=== PATIENT | female | born 2000 | race Caucasian/White ===

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

== ENCOUNTER 2021-11-18 23:17 | Emergency (ER) | payer MEDICAID, OTHER ==
[~2021-11-18] VITALS: Ht 170 cm; Wt 109.0 kg
[~2021-11-18 23:17] MED LIST changes: +FERR160T5 PO; +IBUP-1773 PO; +PREN-142 PO
[2021-11-18 23:28] VITALS: BP_SYST 128; BP_SYST 131; BP_SYST 136; BP_DIAS 78; BP_DIAS 81; BP_DIAS 98
[2021-11-18 23:33] LABS: BILIRUBIN,URINE NEGATIVE (NEGATIVE); CLARITY,URINE CLEAR; COLOR,URINE YELLOW; GLUCOSE, URINE (UA) NEGATIVE (NEGATIVE); KETONES,URINE NEGATIVE (NEGATIVE); LEUKOCYTE ESTERASE ,URINE NEGATIVE (NEGATIVE); NITRITE,URINE NEGATIVE (NEGATIVE); PROTEIN,URINE NEGATIVE (NEGATIVE)
[2021-11-18 23:44] LABS: BACTERIA,URINE TRACE /HPF; SQUAMOUS EPITHELIAL CELL,UR 0-2 /HPF
--- NOTE | 2021-11-19 00:47 | ED General ---
General Chief Complaint: Dizziness/Syncope Stated Complaint: DIZZY Nursing Triage Note: c/o intermittant dizziness for "years" worse tonight since 1999. seen at [facility] for same given meclizine without improvement. (JOYCE HERNANDEZ MED STUDENT) Source of Information: Patient Exam Limitations: No Limitations (CHERY SAL) History of Present Illness Date Seen by Provider: Nov 19, 2021 Time Seen by Provider: 00:11 Initial Comments Sara is a 21 y/o F with PMHx of chronic episodic dizziness who presents for acutely worsening dizziness over the last day. Patient states she has had episodes of dizziness occurring approximately once a month for years which responds well to Meclazine though it has worsened over the last day with no response to medication. She does note some pain in the R ear. Dizziness is worsened by quick motions of the head, described as the room spinning and associated with visual disturbances described as vision darkening and generalized weakness. Patient reports some nausea but denies vomiting, recent falls, trauma, CP, SOB, hearing issues, syncope, focal weakness and fevers. (JOYCE HERNANDEZ MED STUDENT) Date Seen by Provider: Nov 19, 2021 Time Seen by Provider: 00:11 Initial Comments Patient ER by private vehicle chief complaint is had vertigo dizziness for years treated with meclizine successfully until the last months has been having a lot of pressure in her left ear and her vertigo has become more frequent instead of once or twice a month that is now once or twice a week and is less responsive to her meclizine. No other neurologic symptoms, fevers chills sore throat cough runny nose. (CHERY SAL) Allergies and Home Medications Allergies Coded Allergies: No Known Drug Allergies (Unverified , 04/12/13) Patient Home Medication List Home Medication List Reviewed: Yes (CHERY SAL) Ferrous Sulfate, Dried (Iron) 160 Mg Tablet.er, 160 MG PO, (Reported) Entered as Reported by: MARILYNN HO on 08/14/17105 Ibuprofen (Ibuprofen) 600 Mg Tablet, 600 MG PO Q6H Prescribed by: VIKTOR TIM on 08/16/17625 Vit No.124/Iron/FA ( Vitamin Tablet) 1 Each Tablet, 1 EACH PO, (Reported) Entered as Reported by: MARILYNN HO on 1/23/18 0106 Review of Systems Review of Systems Constitutional: dizziness (room spinning); No fever; weakness (episodic) EENTM: blurred vision; No double vision Respiratory: No short of breath, No wheezing Cardiovascular: No chest pain, No syncope Gastrointestinal: nausea; No vomiting Genitourinary: No discharge, No dysuria Musculoskeletal: No back pain, No joint pain Skin: No change in color, No lesions Psychiatric/Neurological: Denies Headache, Denies Weakness (JOYCE HERNANDEZ) Constitutional: No chills, No diaphoresis EENTM: No ear discharge, No hearing loss Respiratory: No cough, No short of breath Cardiovascular: No chest pain, No palpitations Gastrointestinal: No abdominal pain, No nausea, No vomiting Genitourinary: No discharge, No dysuria (CHERY SAL) All Other Systems Reviewed Negative Unless Noted: Yes (CHERY SAL) Past Jzfhwxf-Ezzqes-Zhvabg Hx Patient Social History Tobacco Use?: No Substance use?: No Alcohol Use?: No Pt feels they are or have been: No (JOYCE HERNANDEZ) Tobacco Use?: No Use of E-Cig and/or Vaping dev: No (CHERY SAL) Past Medical History Surgery/Hospitalization HX: hernia, dizziness Surgeries: Yes (HERNIA REPAIR ) Respiratory: No Cardiac: No Neurological: No Genitourinary: No Gastrointestinal: No Musculoskeletal: No Endocrine: No HEENT: No Cancer: No (JOYCE HERNANDEZ) Family Medical History Diabetes mellitus (Father) Physical Exam Vital Signs Vital Signs - First Documented 11/18/21 23:24 Temp 37.3 Pulse 97 Resp 18 B/P (MAP) 131/78 (95) Pulse Ox 98 O2 Delivery Room Air (CHERY SAL) Vital Signs Capillary Refill : Less Than 3 Seconds (JOYCE HERNANDEZ) Height, Weight, BMI Height: 5'7.00" Weight: 211lbs. 6.0oz. [id number]; 37.00 BMI Method: General Appearance: No Apparent Distress, WD/WN Eyes: Bilateral Eye Normal Inspection, Bilateral Eye PERRL, Bilateral Eye EOMI HEENT: PERRL/EOMI, Pharynx Normal Neck: Full Range of Motion, Normal Inspection, Non Tender Respiratory: Chest Non Tender, Lungs Clear, Normal Breath Sounds, No Accessory Muscle Use, No Respiratory Distress Cardiovascular: Regular Rate, Rhythm, No Edema, No Murmur, Normal Peripheral Pulses Gastrointestinal: Normal Bowel Sounds, No Organomegaly Back: Normal Inspection, No CVA Tenderness Extremity: Normal Capillary Refill, Normal Inspection, Non Tender Neurologic/Psychiatric: Alert, Oriented x3 Skin: Normal Color, Warm/Dry (JOYCE HERNANDEZ MED STUDENT) General Appearance: No Apparent Distress, WD/WN Eyes: Bilateral Eye Normal Inspection, Bilateral Eye PERRL, Bilateral Eye EOMI HEENT: PERRL/EOMI, Pharynx Normal, Moist Mucous Membranes, TM Abnormal (L) (Retracted, mucoid effusion, nonmobile but nontender nonerythematous and noninjected) Neck: Full Range of Motion, Normal Inspection Respiratory: Lungs Clear, Normal Breath Sounds, No Accessory Muscle Use, No Respiratory Distress Cardiovascular: Regular Rate, Rhythm, No Edema, Normal Peripheral Pulses Gastrointestinal: Normal Bowel Sounds, Non Tender, Soft Extremity: Normal Capillary Refill, Normal Inspection Neurologic/Psychiatric: Alert, Oriented x3, No Motor/Sensory Deficits Skin: Normal Color, Warm/Dry (CHERY SAL) Progress/Results/Core Measures Suspected Sepsis SIRS Temperature: Pulse: 96 Respiratory Rate: 18 Blood Pressure 128 /81 Mean: 97 (JOYCE HERNANDEZ MED STUDENT) Results/Orders Lab Results Laboratory Tests Test 11/18/21 23:20 Range/Units Urine Color YELLOW Urine Clarity CLEAR Urine pH 6.0 5-9 Urine Specific [place] <=1.005 1.016-1.022 Urine Protein NEGATIVE NEGATIVE Urine Glucose (UA) NEGATIVE NEGATIVE Urine Ketones NEGATIVE NEGATIVE Urine Nitrite NEGATIVE NEGATIVE Urine Bilirubin NEGATIVE NEGATIVE Urine Urobilinogen 0.2 < = 1.0 MG/DL Urine Leukocyte Esterase NEGATIVE NEGATIVE Urine RBC (Auto) NEGATIVE NEGATIVE Urine RBC NONE /HPF Urine WBC NONE /HPF Urine Squamous Epithelial Cells 0-2 /HPF Urine Crystals NONE /LPF Urine Bacteria TRACE /HPF Urine Casts NONE /LPF Urine Mucus NEGATIVE /LPF Urine Culture Indicated NO (CHERY SAL) My Orders Orders - CHERY SAL Ua Culture If Indicated (11/18/21 23:22) Urine Bedside (11/18/21 23:22) Continuous Ekg Monitoring (11/19/21 00:00) Ekg Tracing (11/19/21 00:00) (CHERY SAL) Vital Signs/I&O 11/18/21 11/18/21 11/19/21 23:24 23:28 02:27 Temp 37.3 36.9 Pulse 97 97 88 96 96 Resp 18 16 B/P (MAP) 131/78 (95) 131/78 (95) 115/81 136/98 (111) 128/81 (97) Pulse Ox 98 98 O2 Delivery Room Air Room Air (CHERY SAL) Vital Signs/I&O Capillary Refill : Less Than 3 Seconds (JOYCE HERNANDEZ MED STUDENT) Blood Pressure Mean: 97 Progress Note : Time: 05:09 Progress Note I attest that I saw this patient alongside the medical student and agree with his documented history, physical exam and review of systems except as otherwise noted. Topical steroids for her otitis media effusion/labyrinthitis, taught her some Cordell maneuvers and gave her some handouts. Follow-up with ENT if not seeing improvement in 1 to 2 weeks. (CHERY SAL) ECG Initial ECG Impression Date: Nov 19, 2021 Initial ECG Impression Time: 00:11 Initial ECG Rate: 85 Initial ECG Rhythm: Normal Sinus Initial ECG Intervals: Normal Initial ECG Impression: Normal Comment Normal sinus rhythm without clinically relevant ST elevation or depression (CHERY SAL) Departure Impression Primary Impression: BPPV (benign paroxysmal positional vertigo) Qualified Codes: H81.10 - Benign paroxysmal vertigo, unspecified ear Additional Impressions: Labyrinthitis, left ear OME (otitis media with effusion) Qualified Codes: H65.92 - Unspecified nonsuppurative otitis media, left ear Disposition: 01 HOME, SELF-CARE Condition: Stable Departure-Patient Inst. Decision time for Depature: 02:20 (CHERY SAL) Referrals: BOUBACAR BARRIGA MD NO,LOCAL PHYSICIAN (PCP) Primary Care Physician Patient Instructions: Serous Otitis Media, Vestibular Exercises, Labyrinthitis Add. Discharge Instructions: I think you are having allergic and/or small viral inflammation of the left ear causing a the left middle ear to give you this increased vertigo. Meclizine is still fine to use. research support specialist a bottle of fluticasone/Flonase and do 1 puff in each nostril twice a day for the next 1 to 2 weeks until symptoms improve. Zyrtec/cetirizine or Claritin/loratadine 10 mg daily to help with symptoms. If you are having persistent symptoms despite 1 to 2 weeks of therapy then follow-up with ear nose and throat surgeon, Dr. Barriga. All discharge instructions reviewed with patient and/or family. Voiced understanding. Work/School Note: Work Release Form Date Seen in the Emergency Department: Nov 19, 2021 Return to Work: November 20, 2021 Restrictions: No Restrictions Copy Copies To 1: BOUBACAR BARRIGA MD, MATTHEW MED STUDENT Nov 19, 2021 00:47 CHERY SAL Nov 19, 2021 02:22
[2021-11-19 02:27] VITALS: BP 115/81
== END 2021-11-19 02:27 | disposition home or self-care (01) ==
LOC: EDUNIT# 23:17 → ER 23:20
DX: H81.12 Benign paroxysmal vertigo, left ear (principal); H65.92 Unspecified nonsuppurative otitis media, left ear; H83.02 Labyrinthitis, left ear
CPT/HCPCS: 81000; 84703; 93005

== ENCOUNTER 2022-01-11 23:43 | Emergency (ER) | payer OTHER ==
[~2022-01-11] VITALS: Ht 170.8 cm; Wt 104.3 kg
[2022-01-12] MEDS ORDERED: ORPHENADRINE 60 MG/2 ML (NORFLEX) AMP (ED ONLY) IV ONE (01:30)
[2022-01-12] MEDS ORDERED: PROMETHAZINE INJ 25 MG/ML (PHENERGAN) AMP IVP ONE (01:30)
[2022-01-12] MEDS ORDERED: KETOROLAC 30 MG/ML VIAL IVP ONE (01:30)
[2022-01-12] MEDS ORDERED: LACTATED RINGERS 1,000 ML IV ONE (01:30)
[2022-01-12 01:47] LABS: BASOPHILS % (AUTO) 0 % (0-10); EOSINOPHILS # (AUTO) 0.1 10^3/uL (0.0-0.3); EOSINOPHILS % (AUTO) 1 % (0-10); HEMATOCRIT 40 % (35-52); HEMOGLOBIN 13.4 g/dL (11.5-16.0); LYMPHOCYTES # (AUTO) 2.5 10^3/uL (1.0-4.0); LYMPHOCYTES % (AUTO) 26 % (12-44); MEAN CORPUSCULAR HEMOGLOBIN 31 pg (25-34); MEAN CORPUSCULAR HGB CONC 34 g/dL (32-36); MEAN CORPUSCULAR VOLUME 92 fL (80-99); MEAN PLATELET VOLUME 10.2 fL (9.0-12.2); MONOCYTES # (AUTO) 0.8 10^3/uL (0.0-1.0); MONOCYTES % (AUTO) 8 % (0-12); NEUTROPHILS % (AUTO) 64 % (42-75); PLATELET COUNT 231 10^3/uL (130-400); WHITE BLOOD COUNT 9.4 10^3/uL (4.3-11.0)
[2022-01-12 02:05] LABS: ERYTHROCYTE SEDIMENTATION RATE 18 MM/HR (0-20)
[2022-01-12 02:21] LABS: CALCIUM 9.4 MG/DL (8.5-10.1); CREATININE SERUM 0.84 MG/DL (0.60-1.30); MAGNESIUM 1.8 MG/DL (1.6-2.4); POTASSIUM 3.6 MMOL/L (3.6-5.0)
--- NOTE | 2022-01-12 04:04 | ED Neurological Problem ---
General Chief Complaint: Head/Cervical Problems Stated Complaint: MIGRAINE,DIZZY,BLURRED VISION Nursing Triage Note: C/o Headache and dizziness x approx 2 weeks. Reports that she has been seen at [facility] and given "a shot that starts with T." She reports that she was supposed to get a CT but the order was never written. Currently has not taken her meclizine per her providers direction. Source: patient Exam Limitations: no limitations History of Present Illness Date Seen by Provider: Jan 12, 2022 Time Seen by Provider: 01:05 Initial Comments This 21-year-old young lady presents to the emergency room with complaints of vertigo and headache for approximately 2 weeks. Headache has been persistent for about a week. Tylenol and ibuprofen have not been effective in mitigating her pain. She went to the [facility] clinic and received a Toradol injection which also did not resolve her pain. In fact, she thinks she worsened after the injection. There was discussion about obtaining a CT scan while at the clinic, but that has not yet materialized. Patient is accustomed to having episodes of vertigo since being a teenager. However, she is not accustomed to having headaches this severe or this persistent. She has never experienced a headache like this before. She also has nausea associated with the dizziness. In the past she has been able to manage her symptoms of vertigo with meclizine and Cordell maneuvers. However, these measures have not been successful for symptom control over the past 2 weeks. She describes a vision change of "white spots" when she has exacerbation of pain while lying flat. This improves if she is in an upright position. Beyond the vision changes, she describes no focal neurologic deficits. She has not had any imaging of the head since being a teenager. She has experienced some muscle tension in her neck with tenderness just inferior to the occiput. She has played softball but denies any trauma. She denies as she is not sexually active and has a Mirena IUD. Allergies and Home Medications Allergies Coded Allergies: No Known Drug Allergies (Unverified , 04/12/13) Patient Home Medication List Home Medication List Reviewed: Yes Ferrous Sulfate, Dried (Iron) 160 Mg Tablet.er, 160 MG PO, (Reported) Entered as Reported by: MARILYNN HO on 08/14/17 0106 Ibuprofen (Ibuprofen) 600 Mg Tablet, 600 MG PO Q6H Prescribed by: VIKTOR TIM on 08/16/17 0626 Vit No.124/Iron/FA ( Vitamin Tablet) 1 Each Tablet, 1 EACH PO, (Reported) Entered as Reported by: MARILYNN HO on 08/14/17 0106 Review of Systems Review of Systems Constitutional: no symptoms reported Eyes: See HPI Ears, Nose, Mouth, Throat: no symptoms reported Respiratory: no symptoms reported Cardiovascular: no symptoms reported Gastrointestinal: see HPI Genitourinary: no symptoms reported : No Musculoskeletal: see HPI Skin: no symptoms reported Psychiatric/Neurological: See HPI Endocrine: No Symptoms Reported Hematologic/Lymphatic: No Symptoms Reported Past Kscujrh-Rrydas-Fgqpqo Hx Patient Social History Tobacco Use?: No Substance use?: No Alcohol Use?: No Pt feels they are or have been: No Immunizations Up To Date First/Initial COVID19 Vaccinat: 2020 Past Medical History Surgery/Hospitalization HX: umbillical hernia as a child Surgeries: Yes (HERNIA REPAIR ) Respiratory: No Cardiac: No Neurological: Yes Headaches /Migraines, Vertigo : No Genitourinary: No Gastrointestinal: No Musculoskeletal: No Endocrine: No HEENT: No Cancer: No Psychosocial: No Integumentary: No Family Medical History Diabetes mellitus (Father) Physical Exam Vital Signs Vital Signs - First Documented 01/11/22 23:54 Temp 36.6 Pulse 102 Resp 16 B/P (MAP) 110/76 (87) Pulse Ox 98 O2 Delivery Room Air Capillary Refill : Less Than 3 Seconds Height, Weight, BMI Height: 5'7.00" Weight: 211lbs. 6.0oz. 95.143271um; 35.00 BMI Method: General Appearance: WD/WN, no apparent distress HEENT: PERRL/EOMI, normal ENT inspection, TMs normal, pharynx normal Neck: normal inspection Respiratory: lungs clear, normal breath sounds, no respiratory distress Cardiovascular: regular rate, rhythm, no edema, no murmur Gastrointestinal: non tender, soft; No distended Extremities: non-tender, normal inspection, no pedal edema Neurologic/Psychiatric: chief operator synthesis II-XII nml as tested, no motor/sensory deficits, alert, normal mood/affect, oriented x 3 Crainal Nerves: normal hearing, normal speech, PERRL Coordination/Gait: normal finger to nose (Normal [id number]) Motor/Sensory: no motor deficit, no sensory deficit Skin: normal color, warm/dry Progress/Results/Core Measures Results/Orders Lab Results Laboratory Tests Test 01/12/22 01:40 01/12/22 05:20 Range/Units White Blood Count 9.4 4.3-11.0 10^3/uL Red Blood Count 4.35 3.80-5.11 10^6/uL Hemoglobin 13.4 11.5-16.0 g/dL Hematocrit 40 35-52 % Mean Corpuscular Volume 92 80-99 fL Mean Corpuscular Hemoglobin 31 25-34 pg Mean Corpuscular Hemoglobin Concent 34 32-36 g/dL Red Cell Distribution Width 11.8 10.0-14.5 % Platelet Count 231 130-400 10^3/uL Mean Platelet Volume 10.2 9.0-12.2 fL Immature Granulocyte % (Auto) 0 % Neutrophils (%) (Auto) 64 42-75 % Lymphocytes (%) (Auto) 26 12-44 % Monocytes (%) (Auto) 8 0-12 % Eosinophils (%) (Auto) 1 0-10 % Basophils (%) (Auto) 0 0-10 % Neutrophils # (Auto) 6.0 1.8-7.8 10^3/uL Lymphocytes # (Auto) 2.5 1.0-4.0 10^3/uL Monocytes # (Auto) 0.8 0.0-1.0 10^3/uL Eosinophils # (Auto) 0.1 0.0-0.3 10^3/uL Basophils # (Auto) 0.0 0.0-0.1 10^3/uL Immature Granulocyte # (Auto) 0.0 0.0-0.1 10^3/uL Erythrocyte Sedimentation Rate 18 0-20 MM/HR Sodium Level 142 135-145 MMOL/L Potassium Level 3.6 3.6-5.0 MMOL/L Chloride Level 107 98-107 MMOL/L Carbon Dioxide Level 23 21-32 MMOL/L Anion Gap 12 5-14 MMOL/L Blood Urea Nitrogen 8 7-18 MG/DL Creatinine 0.84 0.60-1.30 MG/DL Estimat Glomerular Filtration Rate 100 BUN/Creatinine Ratio 10 Glucose Level 78 70-105 MG/DL Calcium Level 9.4 8.5-10.1 MG/DL Magnesium Level 1.8 1.6-2.4 MG/DL Influenza Type A (RT-PCR) Not Detected Not Detecte Influenza Type B (RT-PCR) Not Detected Not Detecte SARS-CoV-2 RNA (RT-PCR) Not Detected Not Detecte My Orders Orders - PEBBLES WRIGHT MD Cbc With Automated Diff (01/12/22 01:22) Magnesium (01/12/22 01:22) Erythrocyte Sedimentation Rate (01/12/22 01:22) Ed Iv/Invasive Line Start (01/12/22 01:22) Lactated Ringers (Lr 1000 Ml Iv Solution (01/12/22 01:30) Basic Metabolic Panel (01/12/22 01:22) Ketorolac Injection (Toradol Injection) (01/12/22 01:30) Orphenadrine Inj (Ed Only) (Norflex Inje (01/12/22 01:30) Promethazine Injection (Phenergan Injec (01/12/22 01:30) Ct Head Wo (01/12/22 02:12) Covid 19 Inhouse Test (01/12/22 05:16) Influenza A And B By Pcr (01/12/22 05:16) Meclizine Tablet (Antivert Tablet) (01/12/22 06:00) Ondansetron Injection (Zofran Injectio (01/12/22 06:00) Medications Given in ED Current Medications Medications Dose Ordered Sig/Jolie Route Start Time Stop Time Status Last Admin Dose Admin Ketorolac Tromethamine 15 mg ONCE ONCE IVP 01/12/22 01:30 01/12/22 01:31 DC 01/12/22 01:36 15 MG Lactated Ringer's 1,000 ml @ 0 mls/hr Q0M ONCE IV 01/12/22 01:30 01/12/22 01:31 DC 01/12/22 01:35 1,000 MLS/HR Meclizine HCl 25 mg ONCE ONCE PO 01/12/22 06:00 01/12/22 06:01 DC 01/12/22 06:10 25 MG Ondansetron HCl 8 mg ONCE ONCE IVP 01/12/22 06:00 01/12/22 06:01 DC 01/12/22 06:10 8 MG Orphenadrine Citrate 60 mg ONCE ONCE IV 01/12/22 01:30 01/12/22 01:31 DC 01/12/22 01:36 60 MG Promethazine HCl 25 mg ONCE ONCE IVP 01/12/22 01:30 01/12/22 01:31 DC 01/12/22 01:36 25 MG Vital Signs/I&O 01/11/22 01/12/22 23:54 06:40 Temp 36.6 Pulse 102 80 Resp 16 14 B/P (MAP) 110/76 (87) 101/72 Pulse Ox 98 100 O2 Delivery Room Air Blood Pressure Mean: 87 Progress Progress Note #1: Time: 03:59 Progress Note Patient was hydrated with a liter of LR. Symptoms were treated with Phenergan, Toradol, and Norflex. She is feeling much improved. CT of the head was obtained and revealed chronic right maxillary sinusitis and a large pineal cyst with significant mass-effect. These CT findings were discussed with Dr. Baker, neurosurgeon at [facility] in [place]. She recommends prompt transfer to a tertiary care center. She does not recommend waiting for outpatient follow-up. These recommendations were communicated to the patient, and patient request manjula hart to the [place] area where she has family. Call has been placed to [facility] and I am awaiting response. Progress Note #2: Time: 05:10 Progress Note [facility] declined transfer due to lack of bed availability. I next called [facility] and spoke with Dr. Saunders. He accepted the case but [facility] declined also due to lack of bed availability. I next contacted the [facility] hospital system and spoke with Dr. Snider at [facility] who likewise would accept transfer. He felt inpatient transfer and admission was less urgent based on the information provided. I discussed options with the patient. She is open to transfer to [facility]. While she is considering her options, and also checking with [facility]. Progress Note #3: Time: 05:47 Progress Note has no bed availability. Patient has discussed the situation with her father. She would like to transfer to [facility] by private vehicle. No EMS transport would be available for at least 3 hours, and patient is stable to transfer by private vehicle. Patient's pain is relatively well controlled at this time, but she would like further treatment for nausea and dizziness. Meclizine and Zofran have been ordered. Progress Note #4: Time: 06:15 Progress Note Transfer was ultimately excepted by Dr. Santos (hospitalist) at [facility] with consultation to Dr. Snider (neurosurgery). Patient is stable and will be allowed to transfer by private vehicle with her father with the understanding she should go directly to the hospital from here. Diagnostic Imaging Diagonstic Imaging: CT Plain Films/CT/US/NM/MRI: head Comments CT head viewed by me and statrad report reviewed. Report reads as: 1. No evidence of acute intracranial pathology. 2. Large pineal cyst with significant mass-effect on the tectal plate with narrowing of the cerebral aqueduct without evidence of hydrocephalus recommend MRI with CSF flow analysis for further evaluation. Departure Impression Primary Impression: Pineal gland cyst Additional Impressions: Vertigo Acute headache Qualified Codes: R51.9 - Headache, unspecified Right maxillary sinusitis, chronic Disposition: 02 XFER SHT-TRM HOSP Condition: Stable Transfer Transfer Reason: Exceeds level of care Time Spoke to Accepting Phy: 06:10 Transfer Progress Notes Transfer accepted by Dr. Santos, hospitalist at [facility]. Transfer Time: 06:47 Transfer Facility: [facility] Method of Transfer: Private Vehicle Departure-Patient Inst. Referrals: NO,LOCAL PHYSICIAN (PCP/Family) Primary Care Physician Copy Copies To 1: [facility]/PEBBLES KEY MD Jan 12, 2022 04:04
[2022-01-12] MEDS ORDERED: ONDANSETRON 4 MG/2 ML (SDV) Z0FRAN IVP ONE (06:00)
[2022-01-12] MEDS ORDERED: MECLIZINE 25 MG (ANTIVERT) TAB PO ONE (06:00)
[2022-01-12 06:40] VITALS: BP 101/72
--- NOTE | 2022-01-12 08:44 | Diagnostic Imaging Report ---
PROCEDURE: CT head without contrast. TECHNIQUE: Multiple contiguous axial images were obtained through the brain without the use of intravenous contrast. Auto Exposure Controls were utilized during the CT exam to meet ALARA standards for radiation dose reduction. INDICATION: Severe headache COMPARISON: 04/12/2013 FINDINGS: No intracranial hemorrhage. 4.2 x 2.2 cm CSF density structure is identified involving the left middle cranial fossa. This has not significantly changed since 2012. Small subcentimeter hypodensity is noted involving the pineal gland. This is seen abutting the tectal plate. There is no evidence of hydrocephalus. No additional intracranial mass, mass effect, midline shift, herniation, hydrocephalus, or additional suspicious extra-axial fluid collection. No CT evidence of an acute ischemic infarction. The orbits are unremarkable. Near-complete opacification the right maxillary sinus with coni bullosa of the right middle turbinate. The calvarium is intact. IMPRESSION: Stable benign arachnoid cyst within the left middle cranial fossa, not significantly changed since 2012. Small pineal gland cyst without associated obstructive hydrocephalus. This can be further evaluated with MRI of the brain. Agree with preliminary interpretation that there is an arachnoid cyst and pineal gland cyst and MRI could help to further evaluate. Dictated by: Dictated on workstation # [id number]
== END 2022-01-12 06:47 | disposition short-term general hospital (02) ==
LOC: EDUNIT# 23:43 → ER 23:47
DX: J32.0 Chronic maxillary sinusitis (principal); E34.8 Other specified endocrine disorders; R42 Dizziness and giddiness; T45.0X6A Underdosing of antiallergic and antiemetic drugs, initial encounter; Z91.14 Patient's other noncompliance with medication regimen; Z20.822 Contact with and (suspected) exposure to COVID-19
CPT/HCPCS: 36415; 70450; 80048; 83735; 85025; 85652; 87636

== ENCOUNTER 2022-02-03 21:41 | Emergency (ER) | payer OTHER ==
[~2022-02-03] VITALS: Ht 172.7 cm; Wt 100.0 kg
[2022-02-04 00:48] LABS: BILIRUBIN,URINE NEGATIVE (NEGATIVE); CLARITY,URINE CLEAR; COLOR,URINE YELLOW; GLUCOSE, URINE (UA) NEGATIVE (NEGATIVE); KETONES,URINE NEGATIVE (NEGATIVE); LEUKOCYTE ESTERASE ,URINE TRACE (NEGATIVE); NITRITE,URINE NEGATIVE (NEGATIVE); PH,URINE 5.5 (5-9); PROTEIN,URINE NEGATIVE (NEGATIVE)
[2022-02-04 00:53] LABS: BASOPHILS % (AUTO) 0 % (0-10); EOSINOPHILS # (AUTO) 0.1 10^3/uL (0.0-0.3); EOSINOPHILS % (AUTO) 1 % (0-10); HEMATOCRIT 39 % (35-52); HEMOGLOBIN 13.3 g/dL (11.5-16.0); LYMPHOCYTES % (AUTO) 28 % (12-44); MEAN CORPUSCULAR HEMOGLOBIN 31 pg (25-34); MEAN CORPUSCULAR HGB CONC 34 g/dL (32-36); MEAN CORPUSCULAR VOLUME 91 fL (80-99); MEAN PLATELET VOLUME 10.6 fL (9.0-12.2); MONOCYTES # (AUTO) 0.8 10^3/uL (0.0-1.0); MONOCYTES % (AUTO) 8 % (0-12); NEUTROPHILS # (AUTO) 6.6 10^3/uL (1.8-7.8); NEUTROPHILS % (AUTO) 63 % (42-75); PLATELET COUNT 243 10^3/uL (130-400); WHITE BLOOD COUNT 10.5 10^3/uL (4.3-11.0)
[2022-02-04 00:57] LABS: ALBUMIN 4.2 GM/DL (3.2-4.5); POTASSIUM 3.3 MMOL/L (3.6-5.0)
[2022-02-04 00:59] LABS: CALCIUM 9.3 MG/DL (8.5-10.1)
[2022-02-04 01:00] LABS: TOTAL PROTEIN 6.6 GM/DL (6.4-8.2)
[2022-02-04 01:01] LABS: BILIRUBIN,TOTAL 0.4 MG/DL (0.1-1.0)
[2022-02-04 01:03] LABS: CREATININE SERUM 0.81 MG/DL (0.60-1.30)
[2022-02-04 01:06] LABS: MAGNESIUM 1.7 MG/DL (1.6-2.4)
[2022-02-04 01:08] LABS: BACTERIA,URINE TRACE /HPF; WBC,URINE 0-2 /HPF
[2022-02-04 01:16] LABS: AMPHETAMINE SCREEN, URINE NEGATIVE (NEGATIVE); BARBITURATE SCREEN URINE NEGATIVE (NEGATIVE); BENZODIAZEPINES SCREEN URINE NEGATIVE (NEGATIVE); CANNABINOID SCREEN, URINE NEGATIVE (NEGATIVE); COCAINE SCREEN URINE NEGATIVE (NEGATIVE); METHADONE STAT NEGATIVE (NEGATIVE); OPIATE SCREEN URINE NEGATIVE (NEGATIVE); OXYCODONE STAT NEGATIVE (NEGATIVE); PROPOXYPHENE STAT NEGATIVE (NEGATIVE); TRICYCLIC ANTIDEPRESSANTS SCRE NEGATIVE (NEGATIVE)
--- NOTE | 2022-02-04 02:25 | ED General ---
General Chief Complaint: Dizziness/Syncope Stated Complaint: KUHN,NAUSEA, CHEST PAIN, TIGHTNESS Nursing Triage Note: PT ARRIVAL TO ER [facility] WITH COMPLAINT OF HEADACHE, NAUSEA, BLURRED VISION, SHAKINESS THATS WORSENED TODAY. 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 PT STATES THAT SHE HAS HAD TWO LUMBAR PUNCTURES IN THE LAST WEEK AT [facility] [place] . PT STATES THAT HER PRESSURE IN LUMBAR YESTERDAY WAS 126. Source of Information: Patient History of Present Illness Date Seen by Provider: Feb 04, 2022 Time Seen by Provider: 00:45 Initial Comments PT ARRIVES VIA POV FROM HOME PT WITH MULTIPLE COMPLAINTS C/O HEADACHE--BEGAN 1 1/2 HOURS AGO WHILE DRIVING PAIN STARTS IN OCCIPITAL AREA, AND THEN MOVES TO THE FRONT C/O NAUSEA, NO VOMITING--ONGOING FOR SEVERAL DAYS C/O CHEST TIGHTNESS THAT COMES AND GOES--ON GOING FOR SEVERAL DAYS C/O SHORTNESS OF BREATH--ONGOING FOR SEVERAL DAYS--STATES "I CAN TELL THAT MY BREATHING IS LABORED" C/O COUGH C/O SORE THROAT NO FEVER STATES SHE HAS BEEN "OUT AND ABOUT" ALL DAY, DRIVING ALL OVER, ETC. HAS NOT TAKEN ANYTHING FOR HER HEADACHE OR OTHER SYMPTOMS AT ANY TIME PT WAS SEEN HERE 01/11/22 FOR ONGOING HEADACHE AND DIZZINESS WAS DX WITH [facility] AND TRANSFERRED TO [facility] IN STATES SHE HAD A LUMBAR PUNCTURE AT THAT TIME AND HAD A SPINAL HEADACHE AND RECEIVED A BLOOD PATCH AND WAS GIVEN RX FOR GABAPENTIN FOR A FEW DAYS, HAS NOT HAD IT IN OVER A WEEK STATES SHE WAS ALSO DX WITH "SWOLLEN OPTIC NERVE" BUT NO TREATMENT WAS DONE FOR THAT PT WAS ALSO DX WITH SINUS INFECTION AND TOOK AMOXICILLIN--FINISHED IT OVER A WEEK AGO AT SOME POINT, PT HAS BEEN DX WITH "OCULAR MIGRAINES" BUT NOT PRESCRIBED ANY M EDICATION FOR IT PT WAS AT [facility] AGAIN YESTERDAY FOR THESE PROBLEMS "DIZZINESS AND ELEVATED PRESSURE" AND HAD A LUMBAR PUNCTURE DONE, PT STATES "BUT THEY DIDN'T TAKE ANY FLUID OUT" STATES THIS HEADACHE DOES NOT FEEL ANYTHING AT ALL LIKE THE SPINAL HEADACHE THAT SHE HAD WITH THE FIRST LUMBAR PUNCTURE STATES THIS FEELS LIKE "MY OCULAR MIGRAINES", AND IS WORSE WITH CERTAIN POSITIONS WHEN SHE IS LAYING DOWN. WAS SEEN AT [facility] BY PANCHO HERNANDEZ EARLIER IN THE WEEK AND PT STATES SHE WAS TOLD THAT SHE "MIGHT HAVE A BLOOD CLOT IN MY LUNGS" "BECAUSE I'VE HAS HAD TO LAY DOWN SO MUCH FOR THE LUMBAR PUNCTURES"--SO SHE CAME IN TONIGHT TO HAVE THIS DONE. PT IS NOT ON ANY MEDICATIONS OF ANY KIND AT THIS TIME. PT HAS HAD COVID-19 VACCINE X 2--LAST ONE A YEAR AGO. NO BOOSTER LMP; NONE--HAS IUD IN PLACE. PCP; [facility], [facility] Allergies and Home Medications Allergies Coded Allergies: No Known Drug Allergies (Unverified , 04/12/13) Patient Home Medication List Home Medication List Reviewed: Yes Ferrous Sulfate, Dried (Iron) 160 Mg Tablet.er, 160 MG PO, (Reported) Entered as Reported by: MARILYNN HO on 08/14/17 010 Ibuprofen (Ibuprofen) 600 Mg Tablet, 600 MG PO Q6H Prescribed by: VIKTOR TIM on 08/16/17 0626 Ketorolac Tromethamine (Ketorolac Tromethamine) 10 Mg Tablet, 10 MG PO Q6H Prescribed by: CONSTANCE SCHNEIDER on 02/04/22 0351 Ondansetron (Ondansetron Odt) 4 Mg Tab.rapdis, 4 MG PO Q4H Prescribed by: CONSTANCE SCHNEIDER on 02/04/22 0350 Vit No.124/Iron/FA ( Vitamin Tablet) 1 Each Tablet, 1 EACH PO, (Reported) Entered as Reported by: MARILYNN HO on 08/14/17 010 Review of Systems Review of Systems Constitutional: no symptoms reported EENTM: see HPI Respiratory: see HPI, cough, short of breath Cardiovascular: see HPI, chest pain Gastrointestinal: see HPI; No abdominal pain, No diarrhea; nausea; No vomiting Genitourinary: no symptoms reported : No Musculoskeletal: no symptoms reported Skin: no symptoms reported Psychiatric/Neurological: See HPI, Headache Hematologic/Lymphatic: No Symptoms Reported Immunological/Allergic: no symptoms reported Past Fgudmew-Nmwaai-Qejlge Hx Patient Social History Tobacco Use?: No Use of E-Cig and/or Vaping dev: No Substance use?: No Alcohol Use?: No Pt feels they are or have been: No Immunizations Up To Date First/Initial COVID19 Vaccinat: 2019 Second COVID19 Vaccination Rojelio: 2019 Third COVID19 Vaccination Date: 2019 Past Medical History Surgery/Hospitalization HX: umbillical hernia as a child Surgeries: Yes (HERNIA REPAIR ) Abdominal Respiratory: No Cardiac: No Neurological: Yes Headaches /Migraines, Vertigo : No [employer] History: IUD Genitourinary: No Gastrointestinal: No Musculoskeletal: No Endocrine: No HEENT: No Cancer: No Psychosocial: No Integumentary: No Blood Disorders: No Family Medical History Diabetes mellitus (Father) Physical Exam Vital Signs Vital Signs - First Documented 02/03/22 23:17 Temp 36.8 Pulse 97 Resp 20 B/P (MAP) 145/83 (103) Pulse Ox 99 O2 Delivery Room Air Capillary Refill : Less Than 3 Seconds Height, Weight, BMI Height: 5'7.00" Weight: 211lbs. 6.0oz. [id number]; 33.00 BMI Method: General Appearance: No Apparent Distress, WD/WN, Other (DOES NOT APPEAR ILL OR TO BE IN ANY DISCOMFORT OR DISTRESS. ) HEENT: PERRL/EOMI, TMs Normal, Normal ENT Inspection, Pharynx Normal, Moist Mucous Membranes Neck: Full Range of Motion, Normal Inspection, Non Tender, Supple Respiratory: Normal Breath Sounds, No Accessory Muscle Use, No Respiratory Di stress Cardiovascular: Regular Rate, Rhythm, No Edema, No JVD, No Murmur, Normal Peripheral Pulses Gastrointestinal: Normal Bowel Sounds, No Organomegaly, Non Tender, Soft Back: Normal Inspection, No CVA Tenderness, No Vertebral Tenderness Extremity: Normal Capillary Refill, Normal Inspection, Normal Range of Motion, Non Tender, No Calf Tenderness, No Pedal Edema Neurologic/Psychiatric: Alert, Oriented x3, No Motor/Sensory Deficits, Normal Mood/Affect, sulfur burner II-XII Norm as Tested; No Abnormal Cerebellar Tests Skin: Normal Color, Warm/Dry Progress/Results/Core Measures Suspected Sepsis SIRS Temperature: Pulse: 97 Respiratory Rate: 20 Laboratory Tests 02/04/22 00:39: White Blood Count 10.5 Blood Pressure 145 /83 Mean: 103 Laboratory Tests 02/04/22 00:39: Creatinine 0.81, Platelet Count 243, Total Bilirubin 0.4 Results/Orders Lab Results Laboratory Tests Test 02/04/22 00:28 02/04/22 00:39 Range/Units Influenza Type A (RT-PCR) Not Detected Not Detecte Influenza Type B (RT-PCR) Not Detected Not Detecte SARS-CoV-2 RNA (RT-PCR) Not Detected Not Detecte White Blood Count 10.5 4.3-11.0 10^3/uL Red Blood Count 4.27 3.80-5.11 10^6/uL Hemoglobin 13.3 11.5-16.0 g/dL Hematocrit 39 35-52 % Mean Corpuscular Volume 91 80-99 fL Mean Corpuscular Hemoglobin 31 25-34 pg Mean Corpuscular Hemoglobin Concent 34 32-36 g/dL Red Cell Distribution Width 12.0 10.0-14.5 % Platelet Count 243 130-400 10^3/uL Mean Platelet Volume 10.6 9.0-12.2 fL Immature Granulocyte % (Auto) 0 % Neutrophils (%) (Auto) 63 42-75 % Lymphocytes (%) (Auto) 28 12-44 % Monocytes (%) (Auto) 8 0-12 % Eosinophils (%) (Auto) 1 0-10 % Basophils (%) (Auto) 0 0-10 % Neutrophils # (Auto) 6.6 1.8-7.8 10^3/uL Lymphocytes # (Auto) 3.0 1.0-4.0 10^3/uL Monocytes # (Auto) 0.8 0.0-1.0 10^3/uL Eosinophils # (Auto) 0.1 0.0-0.3 10^3/uL Basophils # (Auto) 0.0 0.0-0.1 10^3/uL Immature Granulocyte # (Auto) 0.0 0.0-0.1 10^3/uL Urine Color YELLOW Urine Clarity CLEAR Urine pH 5.5 5-9 Urine Specific [place] 1.015 L 1.016-1.022 Urine Protein NEGATIVE NEGATIVE Urine Glucose (UA) NEGATIVE NEGATIVE Urine Ketones NEGATIVE NEGATIVE Urine Nitrite NEGATIVE NEGATIVE Urine Bilirubin NEGATIVE NEGATIVE Urine Urobilinogen 0.2 < = 1.0 MG/DL Urine Leukocyte Esterase TRACE H NEGATIVE Urine RBC (Auto) NEGATIVE NEGATIVE Urine RBC NONE /HPF Urine WBC 0-2 /HPF Urine Crystals NONE /LPF Urine Bacteria TRACE /HPF Urine Casts NONE /LPF Urine Mucus NEGATIVE /LPF Urine Culture Indicated NO Sodium Level 140 135-145 MMOL/L Potassium Level 3.3 L 3.6-5.0 MMOL/L Chloride Level 107 98-107 MMOL/L Carbon Dioxide Level 20 L 21-32 MMOL/L Anion Gap 13 5-14 MMOL/L Blood Urea Nitrogen 7 7-18 MG/DL Creatinine 0.81 0.60-1.30 MG/DL Estimat Glomerular Filtration Rate 105 BUN/Creatinine Ratio 9 Glucose Level 84 70-105 MG/DL Calcium Level 9.3 8.5-10.1 MG/DL Corrected Calcium 9.1 8.5-10.1 MG/DL Magnesium Level 1.7 1.6-2.4 MG/DL Total Bilirubin 0.4 0.1-1.0 MG/DL Aspartate Amino Transf (AST/SGOT) 15 5-34 U/L Alanine Aminotransferase (ALT/SGPT) 11 0-55 U/L Alkaline Phosphatase 50 40-136 U/L Total Protein 6.6 6.4-8.2 GM/DL Albumin 4.2 3.2-4.5 GM/DL Serum Test, Qualitative NEGATIVE NEGATIVE Urine Opiates Screen NEGATIVE NEGATIVE Urine Oxycodone Screen NEGATIVE NEGATIVE Urine Methadone Screen NEGATIVE NEGATIVE Urine Propoxyphene Screen NEGATIVE NEGATIVE Urine Barbiturates Screen NEGATIVE NEGATIVE Ur Tricyclic Antidepressants Screen NEGATIVE NEGATIVE Urine Phencyclidine Screen NEGATIVE NEGATIVE Urine Amphetamines Screen NEGATIVE NEGATIVE Urine Methamphetamines Screen NEGATIVE NEGATIVE Urine Benzodiazepines Screen NEGATIVE NEGATIVE Urine Cocaine Screen NEGATIVE NEGATIVE Urine Cannabinoids Screen NEGATIVE NEGATIVE My Orders Orders - CONSTANCE SCHNEIDER DO Ed Iv/Invasive Line Start (02/04/22 00:16) Monitor-Rhythm Ecg Trace Only (02/04/22 00:16) Cbc With Automated Diff (02/04/22 00:16) Comprehensive Metabolic Panel (02/04/22 00:16) Drug Screen Stat (Urine) (02/04/22 00:16) Hcg,Qualitative Serum (02/04/22 00:16) Magnesium (02/04/22 00:16) Ua Culture If Indicated (02/04/22 00:16) Chest 1 View, Ap/Pa Only (02/04/22 00:16) Covid 19 Inhouse Test (02/04/22 00:16) Influenza A And B By Pcr (02/04/22 00:16) Isolation Central Supply Req (02/04/22 00:16) Ct Angio Chest W (02/04/22 01:32) Iohexol Injection (Omnipaque 350 Mg/Ml 1 (02/04/22 02:30) Sodium Chloride Flush (Catheter Flush Sy (02/04/22 02:30) Ns (Ivpb) (Sodium Chloride 0.9% Ivpb Bag (02/04/22 02:30) Rx-Ondansetron Po (Rx-Zofran Po) (02/04/22 03:51) Medications Given in ED Current Medications Medications Dose Ordered Sig/Jolie Route Start Time Stop Time Status Last Admin Dose Admin Iohexol 100 ml ONCE ONCE IV 02/04/22 02:30 02/04/22 02:31 DC 02/04/22 02:21 90 ML Sodium Chloride 10 ml NEEDED PRN IV 02/04/22 02:30 02/04/22 04:03 DC 02/04/22 02:21 10 ML Sodium Chloride 100 ml ONCE ONCE IV 02/04/22 02:30 02/04/22 02:31 DC 02/04/22 02:21 80 ML Vital Signs/I&O 02/03/22 02/04/22 23:17 03:56 Temp 36.8 Pulse 97 74 Resp 20 16 B/P (MAP) 145/83 (103) 106/68 Pulse Ox 99 99 O2 Delivery Room Air Room Air Capillary Refill : Less Than 3 Seconds Blood Pressure Mean: 103 Progress Note : Progress Note PT IS SYMPTOM-FREE WITHOUT TREATMENT AT TIME OF DISMISSAL UNEVENTFUL ER STAY--PT RESTED QUIETLY FOR ENTIRE ER STAY VITALS STABLE, O2 SAT 100% THROUGHOUT ER STAY EXAM IS COMPLETELY NORMAL Diagnostic Imaging Comments CXR--NO ACUTE PROCESS, PENDING RADIOLOGIST REVIEW CT CHEST ANGIOGRAM--NORMAL, NO P.E. OR ACUTE PROCESS--PER STAT RAD VIA FAX AT 0534 Reviewed: Reviewed by Me Departure Impression Primary Impression: HEADACHE Disposition: 01 HOME, SELF-CARE Condition: Stable Departure-Patient Inst. Decision time for Depature: 03:44 Referrals: [facility] Patient Instructions: Headache, Adult (DC) Add. Discharge Instructions: HOME, REST LOTS OF CLEAR LIQUIDS--WATER, BROTH, JELLO, GATORADE FOLLOW UP WITH [facility] IN 2-3 DAYS FOR FURTHER CARE, RETURN TO ER IF WORSE All discharge instructions reviewed with patient and/or family. Voiced understanding. Scripts Ketorolac Tromethamine (Ketorolac Tromethamine) 10 Mg Tablet 10 MG PO Q6H for Pain, #15 TAB Prov: CONSTANCE SCHNEIDER DO 02/04/22 Ondansetron (Ondansetron Odt) 4 Mg Tab.rapdis 4 MG PO Q4H for Nausea/Vomiting, #10 TAB Prov: CONSTANCE SCHNEIDER DO 02/04/22 CONSTANCE SCHNEIDER DO Feb 04, 2022 02:25
[2022-02-04] MEDS ORDERED: NS 100 ML (IVPB) BAG IV ONE (02:30)
[2022-02-04] MEDS ORDERED: IOHEXOL 350 MG/ML 100 ML (OMNIPAQUE 350) VIAL IV ONE (02:30)
[2022-02-04] MEDS ORDERED: CATHETER FLUSH 10 ML SYR IV PRN (02:30)
[2022-02-04] MEDS ORDERED: ONDA4TAB11 PO (03:50)
[2022-02-04] MEDS ORDERED: KETO10TA PO (03:51)
[2022-02-04] MEDS ORDERED: RX-ONDANSETRON 4 MG ODT (ZOFRAN) PPK #4 PO STA (03:51)
[2022-02-04 03:56] VITALS: BP 106/68
--- NOTE | 2022-02-04 06:26 | Diagnostic Imaging Report ---
PROCEDURE: CT angiography of the chest with contrast. TECHNIQUE: Multiple contiguous axial images were obtained through the chest after uneventful bolus administration of intravenous contrast. 3D reconstructed CTA MIP acquisitions were also performed. Auto Exposure Controls were utilized during the CT exam to meet ALARA standards for radiation dose reduction. INDICATION: Suspicion of a high probability of pulmonary embolus. Shortness of air. Cough and congestion. EXAMINATION: CT angiogram chest 02/04/2022 FINDINGS: There are no central or proximal segmental pulmonary emboli. Thoracic aorta unremarkable. Densities in the anterior mediastinum likely residual thymic tissue. No mediastinal or hilar adenopathy appreciated. Lungs clear. No pericardial or pleural effusions. Visualized upper abdomen demonstrates hepatic steatosis. No acute abnormality. There is no acute osseous abnormality. IMPRESSION: 1. No evidence for central or proximal segmental pulmonary embolus. 2. Hepatic steatosis. 3. Findings agree with the preliminary report. Dictated by: Dictated on workstation # [id number]
--- NOTE | 2022-02-04 08:02 | Diagnostic Imaging Report ---
INDICATION: Shortness of air, cough and congestion. Time of Exam: 1:11 AM FINDINGS: The heart size is normal. The pulmonary vascularity is unremarkable. The lungs are clear. No infiltrate, effusion or pneumothorax is detected. IMPRESSION: No acute cardiopulmonary process is detected. Dictated by: Dictated on workstation # [id number]
== END 2022-02-04 04:03 | disposition home or self-care (01) ==
LOC: EDUNIT# 21:41 → ER 21:43
DX: R51.9 Headache, unspecified (principal); Z86.69 Personal history of other diseases of the nervous system and sense organs; Z20.822 Contact with and (suspected) exposure to COVID-19
CPT/HCPCS: 36415; 71045; 71275; 80053; 80306; 81000; 83735; 84703; 85025; 87636; 93041

== ENCOUNTER 2022-11-23 05:29 | Outpatient (CLI) | payer OTHER ==
[~2022-11-23] VITALS: Ht 172.7 cm; Wt 101.4 kg
[~2022-11-23 05:29] MED LIST changes: +KETO10TA PO; +ONDA4TAB11 PO
[2022-11-27] MEDS ORDERED: MECL-149 PO (09:06)
== END 2022-11-27 09:21 | disposition home or self-care (01) ==
LOC: PREOP 05:29
PROVIDERS: ATTEND Otolaryngology Otolaryngology/Facial Plastic Surgery
DX: Z01.818 Encounter for other preprocedural examination (principal)

== ENCOUNTER 2022-11-30 06:27 | Day surgery (SDC) | payer OTHER ==
[~2022-11-30] VITALS: Ht 172.7 cm; Wt 101.4 kg
[2022-11-30] VITALS (12 sets, daily range): BP systolic 110–136; BP diastolic 72–87
[~2022-11-30 06:27] MED LIST changes: +MECL-149 PO
[2022-11-30] MEDS: LACTATED RINGERS 1,000 ML IV PRN ×2 (07:02→09:00)
[2022-11-30] MEDS ORDERED: AMPICILL/SULB 1.5 GM VIAL (UNASYN) ONE (07:15)
[2022-11-30] MEDS ORDERED: HYDROCORTISONE 100 MG/2 ML (Solu-CORTEF) VIAL ONE (07:15)
[2022-11-30 07:24] LABS: BASOPHILS % (AUTO) 0 % (0-10); EOSINOPHILS # (AUTO) 0.1 10^3/uL (0.0-0.3); EOSINOPHILS % (AUTO) 1 % (0-10); HEMATOCRIT 37 % (35-52); HEMOGLOBIN 13.1 g/dL (11.5-16.0); LYMPHOCYTES # (AUTO) 2.3 10^3/uL (1.0-4.0); LYMPHOCYTES % (AUTO) 32 % (12-44); MEAN CORPUSCULAR HEMOGLOBIN 31 pg (25-34); MEAN CORPUSCULAR HGB CONC 35 g/dL (32-36); MEAN CORPUSCULAR VOLUME 89 fL (80-99); MEAN PLATELET VOLUME 10.8 fL (9.0-12.2); MONOCYTES # (AUTO) 0.7 10^3/uL (0.0-1.0); MONOCYTES % (AUTO) 10 % (0-12); NEUTROPHILS # (AUTO) 3.9 10^3/uL (1.8-7.8); NEUTROPHILS % (AUTO) 56 % (42-75); PLATELET COUNT 199 10^3/uL (130-400); WHITE BLOOD COUNT 7.1 10^3/uL (4.3-11.0)
[2022-11-30] MEDS ORDERED: HYDROCORTISONE 100 MG/2 ML (Solu-CORTEF) VIAL IV ONE (07:30)
[2022-11-30] MEDS ORDERED: AMPICILLIN/SULBACTAM INJECTION 1.5 GM in NS (IVPB) 100 ML IV ONE (07:30)
[2022-11-30] MEDS ORDERED: PHENYLEPHRINE 0.5% NASAL SPR (NEO-SYNEPHRINE) REG ONE ×2 (08:08→08:53)
[2022-11-30] MEDS ORDERED: COCAINE HCL 4% 2 ML SYR ONE (08:08)
[2022-11-30] MEDS ORDERED: LIDOCAINE/EPI 1%-1:100,000 (XYLOCAINE) 20ML ONE (08:08)
[2022-11-30] MEDS ORDERED: BSS 15 ML ONE (08:09)
[2022-11-30] MEDS ORDERED: fentaNYL INJ 100 MCG/2 ML AMP ONE (08:15)
[2022-11-30] MEDS ORDERED: proPOfol 200 MG/20 ML (DIPRIVAN) VIAL IV ONE (08:15)
[2022-11-30] MEDS ORDERED: MIDAZOLAM 2 MG/2 ML (VERSED) VIAL ONE (08:15)
[2022-11-30] MEDS ORDERED: LIDOCAINE PF 2% 5 ML (XYLOCAINE) VIAL ONE (08:15)
[2022-11-30] MEDS ORDERED: ROCURONIUM 50 MG/5 ML (ZEMURON) VIAL IV ONE (08:15)
--- NOTE | 2022-11-30 08:33 | Progress Note-Pre Operative ---
Pre-Operative Progress Note Date of Available H&P: November 30, 2022 Date H&P Reviewed: November 30, 2022 Time H&P Reviewed: 07:45 History & Physical: H&P Reviewed, Patient Examed, No changes noted Changes from last HP none Pre-Operative Diagnosis: Crhonci Rgith Sinsutis, Bialt Hyper of INf Turbs BOUBACAR WATSON MD November 30, 2022 08:33
--- NOTE | 2022-11-30 08:34 | Progress Note-Post Operative ---
Post-Operative Progess Note Surgeon (s)/Elevator Dispatcher (s) Surgeon BOUBACAR WATSON MD Elevator Dispatcher n/a Pre-Operative Diagnosis Crhonci Rgith Sinsutis, Bialt Hyper of INf Turbs Post-Operative Diagnosis same Post-Op Procedure Note Date of Procedure: November 30, 2022 Name of Procedure Performed: Right ESS, Bialt PArtial REduction of the ianf Turbinsates Description & Findings Description and Findings: n/a Anesthesia Type get Estimated Blood Loss minimal Packing none. Specimen(s) collected/removed right chronic sinus disease BOUBACAR WATSON MD November 30, 2022 08:34
[2022-11-30] MEDS ORDERED: HYDROcodone/APAP 5 MG/325 MG (LORTAB) TAB PO PRN (08:45)
[2022-11-30] MEDS ORDERED: PROMETHAZINE INJ 25 MG/ML (PHENERGAN) AMP IVP PRN (08:45)
[2022-11-30] MEDS ORDERED: D5 1/2 NS W/KCL 20 MEQ/L 1,000 ML IV SCH (08:45)
[2022-11-30] MEDS ORDERED: COCAINE HCL 4% 2 ML SYR NS ONE (08:52)
[2022-11-30] MEDS ORDERED: LIDOCAINE/EPI 1%-1:100,000 (XYLOCAINE) 20ML INJ ONE (08:53)
[2022-11-30] MEDS ORDERED: BSS 15 ML TOP ONE (08:55)
[2022-11-30] MEDS ORDERED: NEOSTIGMINE (BLOXIVERZ ) 1 MG/1ML 10 ML VIAL ONE (09:07)
[2022-11-30] MEDS ORDERED: GLYCOPYRROLATE 0.2 MG/ML (ROBINUL) 2 ML VIAL ONE (09:07)
[2022-11-30] MEDS ORDERED: SEVOFLURANE (ULTANE) 15 ML INHAL SOLN ONE (09:16)
[2022-11-30] MEDS ORDERED: morphine INJ 10 MG/ML 1ML (SYR OR VIAL) ONE (09:22)
[2022-11-30] MEDS ORDERED: PROMETHAZINE INJ 25 MG/ML (PHENERGAN) AMP IVP ONE (09:30)
[2022-11-30] MEDS ORDERED: HYDROmorphone 2 MG/ML VIAL (DILAUDID) IV ONE (09:30)
[2022-11-30] MEDS ORDERED: ONDANSETRON 4 MG/2 ML (SDV) Z0FRAN IVP PRN (09:30)
[2022-11-30] MEDS ORDERED: morphine INJ 10 MG/ML 1ML (SYR OR VIAL) IVP ONE (09:30)
[2022-11-30] MEDS ORDERED: MEPERIDINE (DEMEROL) INJ 50 MG/ML IVP ONE (09:30)
[2022-11-30] MEDS ORDERED: PROMETHAZINE INJ 25 MG/ML (PHENERGAN) AMP ONE (09:32)
[2022-11-30] MEDS ORDERED: predniSONE 20 MG TAB PO ONE (10:00)
[2022-11-30] MEDS ORDERED: AMOX-355 PO (11:00)
[2022-11-30] MEDS ORDERED: ACHD5005 PO (11:02)
[2022-11-30] MEDS ORDERED: PRD20T PO (11:02)
--- NOTE | 2022-11-30 11:46 | Anesthesia-General Post-Op ---
General Patient Condition Mental Status/LOC: Same as Preop Cardiovascular: Satisfactory Nausea/Vomiting: Absent Respiratory: Satisfactory Pain: Controlled Complications: Absent Post Op Complications Complications None Follow Up Care/Instructions Patient Instructions None needed. Anesthesia/Patient Condition Patient Condition Patient is doing well, no complaints, stable vital signs, no apparent adverse anesthesia problems. No complications reported per nursing. SHE HAMLIN CRNA November 30, 2022 11:46
== END 2022-11-30 11:30 ==
LOC: SDC 06:27
PROVIDERS: ATTEND Otolaryngology Otolaryngology/Facial Plastic Surgery
DX: J32.9 Chronic sinusitis, unspecified (principal); J34.3 Hypertrophy of nasal turbinates
CPT/HCPCS: 36415; 84703; 85025; 87081

== ENCOUNTER → 2023-01-11 | Outpatient (CLI) | payer OTHER ==
[~2023-01-11] MED LIST changes: +ACHD5005 PO; +AMOX-355 PO; +GADOTERATE 0.5 MMOL/ML (CLARISCAN) 20 ML VIAL IV ONE; +PRD20T PO
--- NOTE | 2023-01-11 16:13 | Diagnostic Imaging Report ---
PROCEDURE: MR imaging of the brain with and without contrast. TECHNIQUE: Multiplanar, multisequence MR imaging of the brain was performed with and without contrast. DATE: January 11, 2023. COMPARISON: CT head January 12, 2022. HISTORY: 22-year-old female, headaches. History of brain cyst. FINDINGS: There is no restricted diffusion. There are no areas of abnormal intracranial susceptibility. The ventricles and CSF spaces are normal in size and configuration for patient age. There is a CSF attenuation area in the anterior aspect of the left middle cranial fossa without diffusion restriction or contrast enhancement. This is consistent with an arachnoid cyst. This measures 4.4 x 2.4 x 2.9 cm. There is no acute intracranial hemorrhage. There is no mass effect or midline shift. There is no area of abnormal intraparenchymal signal or enhancement. There is prominent mucosal thickening of the right maxillary sinus. There is also a polypoid type lesion without internal contrast enhancement which may relate to a mucus retention cyst or polyp. There is nonspecific opacification in the right anterior ethmoidal air cells. There is a nonenhancing pineal gland cyst measuring 8 x 7 x 6 mm in size. IMPRESSION: 1. Arachnoid cyst in the anterior aspect of the left middle cranial fossa measuring 4.4 x 2.4 x 2.9 cm in size. 2. 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 3. No acute intracranial abnormality. 4. Mucous retention cyst versus polyp in the right maxillary sinus and additional nonspecific opacification in the right anterior ethmoidal air cells. Dictated by: Dictated on workstation # [id number]
== END ==
LOC: RAD 14:09
DX: D35.4 Benign neoplasm of pineal gland (principal); G93.0 Cerebral cysts
CPT/HCPCS: 70553

== ENCOUNTER 2023-05-14 10:17 | Outpatient (CLI) | payer OTHER ==
[2023-05-14] VITALS (28 sets, daily range): BP systolic 100–123; BP diastolic 64–88
[~2023-05-14] VITALS: Ht 172 cm; Wt 109.0 kg
[~2023-05-14 10:17] MED LIST changes: -GADOTERATE 0.5 MMOL/ML (CLARISCAN) 20 ML VIAL IV ONE; -MECL-149 PO; +MECL-291 PO
[2023-05-14] MEDS ORDERED: NS IV 1000 ML 1,000 ML ONE (10:45)
[2023-05-14] MEDS ORDERED: ATROPINE 1 MG/10 ML EMERGENCY SYRINGE ONE (10:45)
[2023-05-14] MEDS ORDERED: NS IV 1000 ML 1,000 ML IV ONE (11:15)
[2023-05-14] MEDS ORDERED: NS IV 1000 ML 1,000 ML IV SCH (11:15)
[2023-05-14] MEDS ORDERED: ATROPINE 1 MG/10 ML EMERGENCY SYRINGE INJ PRN (11:15)
--- NOTE | 2023-05-14 12:05 | Cardiology Tilt Table Test ---
Cardiology-Tilt Table Test Tilt Table Test Date 05/14/23 Baseline Vitals Vital Signs Date Time Temp Pulse Resp B/P (MAP) Pulse Ox O2 Delivery O2 Flow Rate FiO2 05/14/23 11:10 36.3 81 16 116/68 (84) 98 Room Air Vital Signs VS - Last 72 Hours, by Label 05/14/23 05/14/23 05/14/23 05/14/23 11:10 11:14 11:19 11:20 Temp 36.3 Pulse 81 84 95 89 Resp 16 17 15 12 B/P (MAP) 116/68 (84) 110/70 (83) 121/75 (90) 123/84 (97) Pulse Ox 98 93 99 98 O2 Delivery Room Air Room Air Room Air Room Air 05/14/23 05/14/23 05/14/23 05/14/23 11:21 11:22 11:23 11:24 Pulse 87 89 89 87 Resp 16 14 12 16 B/P (MAP) 115/84 (94) 113/75 (88) 112/77 (89) 111/87 (95) Pulse Ox 98 98 98 98 O2 Delivery Room Air Room Air Room Air Room Air 05/14/23 05/14/23 05/14/23 05/14/23 11:25 11:26 11:27 11:28 Pulse 92 96 90 90 Resp 15 11 14 12 B/P (MAP) 114/74 (87) 119/78 (92) 109/81 (90) 100/67 (78) Pulse Ox 99 99 99 100 O2 Delivery Room Air Room Air Room Air Room Air 05/14/23 05/14/23 05/14/23 05/14/23 11:29 11:30 11:31 11:32 Pulse 70 93 94 107 Resp 14 14 12 22 B/P (MAP) 114/72 (86) 111/65 (80) 107/68 (81) 107/66 (80) Pulse Ox 99 99 100 98 O2 Delivery Room Air Room Air Room Air Room Air 05/14/23 05/14/23 05/14/23 05/14/23 11:33 11:34 11:35 11:36 Pulse 99 130 115 101 Resp 22 14 14 15 B/P (MAP) 112/64 (80) 116/88 (97) 110/85 (93) 112/75 (87) Pulse Ox 97 96 94 95 O2 Delivery Room Air Room Air Room Air Room Air 05/14/23 05/14/23 05/14/23 05/14/23 11:37 11:38 11:39 11:40 Pulse 103 97 96 91 Resp 10 15 14 13 B/P (MAP) 113/77 (89) 107/75 (86) 106/74 (85) 120/78 (92) Pulse Ox 96 96 97 95 O2 Delivery Room Air Room Air Room Air Room Air 05/14/23 05/14/23 05/14/23 05/14/23 11:41 11:42 11:43 11:44 Pulse 104 95 95 74 Resp 17 16 16 17 B/P (MAP) 106/79 (88) 114/82 (93) 110/68 (82) 106/66 (79) Pulse Ox 98 98 98 99 O2 Delivery Room Air Room Air Room Air Room Air Patient was tilted to 75 degrees for [10] minutes, then returned to supine pos ition, given [2] sublingual nitroglycerin tablets, then tilted again to 75 degrees for [15] minutes. During test, patient was: symptomatic (brief episode of dizziness/lightheadedness during stage 2, minute 1) In Conclusion;: Negative Tilt Table Test Patient had brief episode of tachycardia when tilted to 75degrees during stage 2, minute 1. BP remained stable and patient was asymptomatic through the remainder of the test. This is Anna Cervantes PA-C, as a scribe for Dr Wilson. ANNA CERVANTES PA-C May 14, 2023 12:05 PLACIDO WILSON MD May 14, 2023 12:14
== END 2023-05-14 12:08 ==
LOC: CARD 10:17
PROVIDERS: ATTEND Internal Medicine Cardiovascular Disease
DX: R42 Dizziness and giddiness (principal)
CPT/HCPCS: 93660

== ENCOUNTER 2023-05-14 23:45 | Emergency (ER) | payer OTHER ==
[2023-05-14 23:58] VITALS: BP 127/73
--- NOTE | 2023-05-15 00:09 | ED Headache ---
General Chief Complaint: Head/Cervical Problems Stated Complaint: KUHN,NAUSEA,VOMITING,DIZZY,RACING HEART Source: patient Exam Limitations: no limitations History of Present Illness Date Seen by Provider: May 15, 2023 Time Seen by Provider: 23:59 Initial Comments 23-year-old female presents emergency department for headache. She states she had a tilt table test today at about noon. She was given nitroglycerin during the testing. She felt fine during the testing but about an hour after she got home she began to have a headache which has been persistent since that time. It is dull throbbing diffuse about her head without any changes in vision. She has some nausea without any vomiting. Headache is worse with exertion, improved mildly with rest but still present at rest. Recent illness. No fevers or chills. No neck stiffness All other systems reviewed and negative except per HPI Allergies and Home Medications Allergies Coded Allergies: No Known Drug Allergies (Unverified , 11/30/22) Patient Home Medication List Home Medication List Reviewed: Yes Amoxicillin/Potassium Clav (Augmentin 500-125 Tablet) 500 Mg-125 Mg Tablet, 1 EACH PO BID Prescribed by: MDE LOTT on 11/30/22 1100 Hydrocodone/Acetaminophen (Hydrocodone-Acetamin 5-325 mg) 5 Mg-325 Mg Tablet, 1- 2 TAB PO Q4H PRN for PAIN-MODERATE (5-7) Prescribed by: MED LOTT on 11/30/22 1102 Meclizine HCl (Meclizine HCl) 25 Mg Tablet, 25 MG PO, (Reported) Entered as Reported by: AVERY ALAMO on 11/27/22 0906 Ondansetron (Ondansetron Odt) 4 Mg Tab.rapdis, 4 MG PO Q4H Prescribed by: CONSTANCE SCHNEIDER on 02/04/22 0350 Prednisone (Prednisone) 20 Mg Tab, 20 MG PO DAILY Prescribed by: MED LOTT on 11/30/22 1102 Review of Systems Review of Systems Constitutional: see HPI Past Zmnzbpj-Btytrd-Yoagep Hx Patient Social History Tobacco Use?: No Use of E-Cig and/or Vaping dev: No Substance use?: No Alcohol Use?: No Immunizations Up To Date First/Initial COVID19 Vaccinat: 2020 Second COVID19 Vaccination Rojelio: 2020 Third COVID19 Vaccination Date: 2019 Seasonal Allergies Seasonal Allergies: No Past Medical History Surgery/Hospitalization HX: umbillical hernia as a child Surgeries: Yes (HERNIA REPAIR INFANT) Abdominal Respiratory: No Currently Using CPAP: No Currently Using BIPAP: No Cardiac: No Syncope Neurological: Yes Brain Tumor, Headaches /Migraines, Vertigo 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 6.0oz. 95.180462uq; 36.84 BMI Method: General Appearance: WD/WN, no apparent distress HEENT: normal ENT inspection, pharynx normal Neck: non-tender, supple, normal inspection Cardiovascular: regular rate, rhythm, no murmur Respiratory: chest non-tender, lungs clear, normal breath sounds, no respiratory distress, no accessory muscle use Gastrointestinal: normal bowel sounds, non tender, soft Extremities: normal range of motion, non-tender, normal inspection, normal capillary refill Skin: normal color, warm/dry Progress/Results/Core Measures Results/Orders Vital Signs/I&O 05/14/23 23:58 Temp 36.9 Pulse 81 Resp 16 B/P (MAP) 127/73 (91) Pulse Ox 100 O2 Delivery Room Air Departure Communication (Admissions) Patient has a headache with no red flag symptoms. Conservative management and reassurance given Impression Primary Impression: Headache Qualified Codes: R51.9 - Headache, unspecified Disposition: 01 HOME, SELF-CARE Condition: Stable Departure-Patient Inst. Referrals: PAULO HERNANDEZ APRN (PCP/Family) Primary Care Physician Patient Instructions: Headache, Adult ED LY HUI DO May 15, 2023 00:09
== END 2023-05-15 00:11 | disposition home or self-care (01) ==
LOC: EDUNIT# 23:45 → ER 23:48
DX: R51.9 Headache, unspecified (principal)
CPT/HCPCS: 99281

== ENCOUNTER → 2023-05-30 | Outpatient (CLI) | payer OTHER ==
[2023-05-30 15:20] VITALS: BP 130/78
--- NOTE | 2023-05-30 15:21 | Cardiology Stress Test Report ---
Stress Test Report Date of Procedure/Referring: Date of Procedure: May 30, 2023 PCP Eileen Hammer Aprn Admitting Physician Admitting Physician: Attending Physician: Eliu Barriga MD Baseline Heart Rate: 98 Baseline Blood Pressure: Blood Pressure Systolic: 130 Blood Pressure Diastolic: 78 Baseline EKG: Baseline EKG: NSR Summary/Conclusion: Summary: In summary, the patient started exercising with a baseline heart rate, blood pressure and EKG mentioned above Patient was able to exercise for a total of 6.30 minutes on Tushar protocol, METs 7.9 Maximum heart rate 178 Maximum blood pressure 174/80 Stress EKG, Minimal nondiagnostic changes Recovery EKG , Return to baseline Conclusion: 1. Good exercise tolerance for a total of 6.30 minutes on Tushar protocol, 7.9 METs, achieving percent of 91 maximum expected heart rate 2. Minimal nondiagnostic EKG changes with exercise returned to baseline during recovery 3. No arrhythmia was noted CC PLACIDO Alicia APRN, MD May 30, 2023 15:20
== END ==
LOC: CARD 14:03
PROVIDERS: ATTEND Otolaryngology Otolaryngology/Facial Plastic Surgery
DX: I10 Essential (primary) hypertension (principal); I25.10 Atherosclerotic heart disease of native coronary artery without angina pectoris
CPT/HCPCS: 93017